=== PATIENT | female | born 2005 | race Caucasian/White ===

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

== ENCOUNTER 2023-12-04 11:16 | Outpatient (CLI) | payer MEDICAID, SELFPAY ==
--- NOTE | 2023-12-04 08:30 | DI.RAD_ITS ---
Exam(s) XR KNEE RT 2V AP,LAT EXAM: XR KNEE RT 2V AP,LAT CLINICAL HISTORY: RIGHT KNEE PAIN. TECHNIQUE: 2D digital imaging was performed of the right knee. Two views obtained. AP and lateral views were obtained. COMPARISON: CR XR KNEE RT 3V AP,LAT,KASSI from 02/07/2022 MR MR LOWER JOINT RT WO from 03/03/2022 FINDINGS: BONES: No acute fracture is present. No bony destructive lesion is seen. JOINTS: The knee is normally aligned. No joint effusion is seen. The previously noted suprapatellar d ensities have been removed. SOFT TISSUE: Normal. IMPRESSION: The previously noted osteochondral bodies are not visualized on this examination. No acute abnormali ties identified. DATA REPOSITORY: RADIATION DOSE DELIVERED:
== END 2023-12-04 11:17 | disposition home or self-care (01) ==
LOC: DIORS 11:17
PROVIDERS: PCP Nurse Practitioner Family; Visit Provider Student in an Organized Health Care Education/Training Program
DX: M93.261 Osteochondritis dissecans, right knee (principal)
CPT/HCPCS: 73560

== ENCOUNTER 2024-01-01 01:24 | Outpatient (CLI) | payer MEDICAID, SELFPAY ==
--- NOTE | 2024-01-01 06:30 | DI.MRI_ITS ---
Exam(s) MR LOWER JOINT RT WO EXAM: MR LOWER JOINT RT WO CLINICAL HISTORY: R KNEE PAIN,osteochondritis dissecans rt knee, m93.261. TECHNIQUE: Multiplanar multisequence MRI was performed. COMPARISON: CR XR KNEE RT 3V AP,LAT,KASSI from 02/07/2022 MR MR Knee RT wo from 03/26/2023 CR XR KNEE RT 2V AP,LAT from 12/04/2023 FINDINGS: BONES: Osteochondral defect again noted in the lateral aspect of the medial femoral condyle. Mild ed garrison in the surrounding bone. JOINTS: A small joint effusion is present. No loose bodies. Articular cartilage: Patellofemoral joint: Articular cartilage is unremarkable. Medial femoral tibial joint: Cartilage thinning and irregularity over the region of osteochondral de fect. Lateral femoral tibial joint: Articular cartilage is unremarkable. LIGAMENTS: Anterior Cruciate: Unremarkable. Posterior Cruciate: Unremarkable. Medial Collateral:Unremarkable. Lateral Collateral ligament complex: Unremarkable. TENDONS: Extensor mechanism: Unremarkable. Medial retinaculum: Unremarkable. Lateral retinaculum: Unremarkable. Popliteus: Unremarkable. MENISCI: The medial meniscus is unremarkable. The lateral meniscus is unremarkable. MUSCLES: Unremarkable. SOFT TISSUES: Unremarkable. IMPRESSION: Stable appearance of osteochondral defect of the medial femoral condyle with some from overlying cart ilage thinning and irregularity. Small joint effusion no joint space loose bodies. DATA REPOSITORY:
== END 2024-01-01 01:44 ==
LOC: DI 01:24
PROVIDERS: PCP Nurse Practitioner Family; Visit Provider Student in an Organized Health Care Education/Training Program
DX: M93.261 Osteochondritis dissecans, right knee (principal)
CPT/HCPCS: 73721

== ENCOUNTER 2024-04-23 21:07 | Outpatient (REF) | payer MEDICAID, SELFPAY ==
[2024-04-23 21:22] LABS: HCT 43.6 % (36.0-46.0); HGB 14.3 g/dL (11.2-15.7); MCH 28.8 pg (27.0-33.0); MCHC 32.8 % (32.0-36.0); MCV 88 fL (80-95); MPV 11.7 fL (8.0-11.0); Platelet Count 275 10^3/uL (130-400); RBC 4.96 10^6/uL (3.93-5.22); RDW 12.5 % (11.7-14.6); RDW-SD 39.8 fL; WBC 9.32 10^3/uL (4.4-10.8)
[2024-04-23 21:44] LABS: ALT 23 U/L (14-59); AST 19 U/L (15-37); Albumin 3.5 g/dL (3.4-5.0); Alkaline Phosphatase 80 U/L (46-116); BUN 13 mg/dL (7-18); Bilirubin, Total 0.46 mg/dL (0.2-1.0); Calcium 9.8 mg/dL (8.5-10.1); Chloride 107 mmol/L (98-107); Glucose 100 mg/dL (74-106); Potassium 4.2 mmol/L (3.5-5.1); Sodium 142 mmol/L (136-145); TSH (W/Ref FT4) 1.18 uIU/mL (0.36-3.74); Total Protein 6.9 g/dL (6.4-8.2)
== END 2024-04-23 21:08 | disposition home or self-care (01) ==
LOC: LBN 21:07
PROVIDERS: PCP Nurse Practitioner Family; Visit Provider Nurse Practitioner Family
DX: R63.5 Abnormal weight gain (principal); R53.83 Other fatigue; E78.00 Pure hypercholesterolemia, unspecified; F41.9 Anxiety disorder, unspecified
CPT/HCPCS: 80053; 85027; 84443

== ENCOUNTER 2024-06-26 01:25 | Outpatient (CLI) | payer MEDICAID, SELFPAY ==
--- NOTE | 2024-06-26 07:15 | DI.US_ITS ---
Exam(s) US PELVIS TRANSVAGINAL EXAM: US PELVIS TRANSVAGINAL CLINICAL HISTORY: ? PCOS,hypomenorrhea,oligomenorrhea,n91.5. TECHNIQUE: Transabdominal and transvaginal pelvic ultrasound was performed using standard protocol. COMPARISON: No exams were available for comparison FINDINGS: UTERUS: Position: Anteverted. Size: 5.3 long by 2.2 AP by 3.0 transverse cm Endometrium: 0.1 cm. Normal for patient's menstrual status. There is a small amount of fluid within t he endometrial canal. Myometrium: Unremarkable. Cervix: Unremarkable. OVARIES: Right: 3.3 x 2.0 x 1.4 cm Cyst or mass: No suspicious cystic or solid masses. There are few small simple follicular cyst (less than 10). Left: 2.4 x 2.2 x 1.9 cm Cyst or mass: No suspicious cystic or solid masses. There are few small simple follicular cysts (les s than 10). DOPPLER: Color: Symmetric and uniform flow to both ovaries. CUL-DE-SAC: Free fluid: None. Other: None. IMPRESSION: 1. Normal-appearing uterus with endometrial stripe within normal limits. 2. Small amount of fluid seen within the endometrial canal. 3. Unremarkable bilateral ovaries. DATA REPOSITORY:
== END 2024-06-26 01:45 ==
LOC: DI 01:25
PROVIDERS: PCP Nurse Practitioner Family; Visit Provider Nurse Practitioner Family
DX: N91.5 Oligomenorrhea, unspecified (principal)
CPT/HCPCS: 76830; 76856

== ENCOUNTER 2024-08-29 15:28 | Outpatient (REF) | payer MEDICAID, SELFPAY ==
--- NOTE | 2024-08-29 13:10 | PAPFT_PTH ---
PATIENT: Ajith Dhaliwal LOC: [facility] U#:[id number] AGE/SX: 19/F ROOM: RE08/29/[address]: Sarah Costa DO : 2005 BED: DIS: 08/29/2024 SPEC #: [id number] RECD: 08/29/24 17:11 STATUS: JAXSON REQ #: [id number] DAVE: 08/29/24 13:[address]: Sarah Costa DEPT: [facility] Cytology RECD BY: Elayne Fischer ENTERED: 08/29/24 17:11 SP TYPE: PAPFT OTHR DR: Maile Preciado, [place] Tissues: 1 - CX/ENDOCX FOR PAP SMEARS Procedures: PAP THIN PREP/[facility] Screening HPV DNA PROBE Comments: [id number] (HPV 16 & 18/45) (CHLAMYDIA/GC)
[2024-09-01 12:18] LABS: Chlamydia Result Negative (Negative); GC Result Negative (Negative)
== END 2024-08-29 15:29 | disposition home or self-care (01) ==
LOC: LBN 15:28
PROVIDERS: PCP Nurse Practitioner Family; Visit Provider Obstetrics & Gynecology
DX: Z12.4 Encounter for screening for malignant neoplasm of cervix (principal)
CPT/HCPCS: 87491; 87591; 88142; 87624

== ENCOUNTER 2024-09-03 04:08 | Outpatient (CLI) | payer MEDICAID, SELFPAY ==
[2024-09-03 12:06] LABS: TSH (W/Ref FT4) 0.69 uIU/mL (0.36-3.74)
[2024-09-03 18:59] LABS: FSH 8.8 mIU/mL (See Note)
[2024-09-03 19:02] LABS: LH 8.3 mIU/mL (See Note)
== END 2024-09-03 04:09 | disposition home or self-care (01) ==
LOC: LBO 04:09
PROVIDERS: PCP Nurse Practitioner Family; Visit Provider Obstetrics & Gynecology
DX: E88.810 Metabolic syndrome (principal)
CPT/HCPCS: 36415; 83498; 83001; 83002; 84443

== ENCOUNTER 2025-01-06 13:13 | Outpatient (REF) | payer MEDICAID, SELFPAY ==
[2025-01-07 11:47] LABS: Chlamydia Result Negative (Negative); GC Result Negative (Negative)
== END 2025-01-06 13:14 | disposition home or self-care (01) ==
LOC: LBN 13:13
PROVIDERS: PCP Nurse Practitioner Family; Visit Provider Obstetrics & Gynecology
DX: Z11.3 Encounter for screening for infections with a predominantly sexual mode of transmission (principal)
CPT/HCPCS: 87491; 87591